=== PATIENT | male | born 1940 | race Caucasian/White ===

== ENCOUNTER 2024-10-05 10:10 | Inpatient (IN) ==
--- NOTE | 2024-10-03 13:33 | Anesthesiology Consultation ---
Date of Service October 03, 2024 Assessment & Plan (1) Encounter for pre-operative examination: - Infectious disease screening: Per assessment on 09/29/24- No known recent infectious disease contacts or current infectious disease symptoms. - Eliquis/Clopidogrel instructions per surgeon/prescriber - Cardiology note (09/23/24): "patient recently seen by Jayda Arellano with no concerns. Patient states today he has no change in symptoms. Able to complete 4 METS with no chest pain or SOB. Low cardiac risk for TCAR.." Chart Review Chart Review: Acceptable Risk for Surgery and Patient NOT seen in Pre Admission Testing History Surgery Operation Date: 10/05/24 11:50 Proposed Procedures p Right Transcarotid Artery Revascularization - Yonas Klein MD Height/Weight Height: 6 ft Weight: 75.296 kg Allergies Allergy/AdvReac Type Severity Reaction Status Date / Time bee venom protein (honey bee) Allergy Severe Anaphylaxis Verified 09/29/24 08:33 Penicillins Allergy Unknown as a Verified 09/29/24 08:33 child>unsure rx Medications Home Medications Medication Instructions Recorded Confirmed Last Taken amlodipine 10 mg tablet 10 mg PO QAM 09/29/24 09/29/24 Unknown apixaban 5 mg tablet 5 mg PO BID 09/29/24 09/29/24 Unknown aspirin 81 mg tablet,delayed 81 mg PO DAILY 09/29/24 09/29/24 Unknown release cholecalciferol (vitamin D3) 10 10 mcg PO QAM 09/29/24 09/29/24 Unknown mcg (400 unit) tablet (Vitamin D3) clopidogrel 75 mg tablet 75 mg PO QAM 09/29/24 09/29/24 Unknown cyanocobalamin (vitamin B-12) 1,000 mcg PO QAM 09/29/24 09/29/24 Unknown 1,000 mcg tablet ezetimibe 10 mg tablet (Zetia) 10 mg PO HS 09/29/24 09/29/24 Unknown Past Medical History Medical History Arthritis Atrial fibrillation Taking Eliquis Follows with [place] cardiology Carotid stenosis Hyperlipidemia Hypertension Past Family History Family History Other No family history of adverse response to anesthesia Past Surgical History Surgical History H/O bilateral cataract extraction H/O shoulder surgery (1999) Left TSA History of cardioversion "Attempt" (2014) History of colonoscopy History of tooth extraction Social History Smoking Status: Former smoker Do You Dip or Chew Tobacco: No Smoking End Date: 04/2024 Hx Alcohol Use: Yes Alcohol type: beer alcohol intake frequency: a few times a week Alcohol Intake Frequency Comment: 6 beers weekly substance use type: does not use Testing Laboratory Results 09/01/24 WBC 6.6 H/H 14.2/42.6 PLATELETS 232 SODIUM 142 POTASSIUM 4.2 CHLORIDE 106 CO2 26 BUN 23 CREATININE 1.2 GLUCOSE 92 HGBA1C 5.9% Electrocardiogram Date: 05/06/24 A. fib at 85bpm. Chest X-Ray Date: 05/06/24 FINDINGS: Heart size and pulmonary vasculature are normal. No effusion, consolidation, or pneumothorax. IMPRESSION: No acute findings. Echocardiogram Date: 12/10/21 EF 60-65%. RV systolic function is at low end of normal. Mild LAD. Moderate TINO. Mild MR. Mild AI. Moderate TR. Stress Test Date: 03/06/22 No reversible myocardial perfusion defects. 63%. Other Testing Neck CTA Date: 04/13/24 Severe VIDAL origin stenosis and focal mild stenosis just distal to the origin. Moderate stenosis at the origin of and just distal to the origin of the LICA. Complete or near-complete occlusion at the origin of the right external carotid artery, but immediately patent just after this focal stenosis at the origin. mild stenosis in b/l common carotid arteries.
--- NOTE | 2024-10-05 08:25 | History & Physical Report ---
Date of Service October 05, 2024 History of Present Illness Primary Care Provider: [facility] Name: ISMAEL PYLE Patient Number: [id number] : 1940 Date of Service: 09/22/2024 Chief Complaint: _New patient consultation for carotid stenosis HPI: _Mr. Pyle is an elderly male who presents to Dr. Klein's vascular surgery clinic today as a new patient in consultation for bilateral carotid stenosis. Patient states that they have been watching his carotid arteries for quite some time, ever since hearing a noise when listening to his neck a few years ago. Patient denies any symptoms of cerebrovascular insufficiency including amaurosis, unilateral extremity weakness numbness tingling, difficulty speaking or swallowing, facial droop, sudden onset confusion. No history of CVA in the past. Patient denies headache, fever, chest pain, shortness of breath, abdominal pain, nausea, vomiting, rest pain, claudication, nonhealing wounds or ulcers, other complaints. Review of systems: A total of 14 systems were reviewed and are negative aside from what is related in his HPI Imaging: Patient had a CTA neck performed at the [facility] which demonstrates severe bilateral carotid stenosis, worse on the right than the left. The right ICA 90% stenosis, the left has 80 to 90% stenosis. Current Home Meds: (Last Updated 09/22 10:35) DULoxetine (DULoxetine 20 mg oral delayed release capsule) 20 mg PO Daily EPINEPHrine (EpiPen 2-Benedict 0.3 mg injectable kit) 0.3 mg IM ONCE PRN: as needed for anaphylaxis amLODIPine (amLODIPine 10 mg oral tablet) 10 mg PO Daily apixaban (apixaban 5 mg oral tablet) 5 mg PO bid aspirin (aspirin 81 mg oral delayed release tablet) 81 mg PO Daily cholecalciferol PO Daily clopidogrel (Plavix 75 mg oral tablet) 75 mg PO Daily cyanocobalamin (cyanocobalamin 1000 mcg oral tablet) 1,000 mcg PO Daily ezetimibe (ezetimibe 10 mg oral tablet) 10 mg PO Daily lisinopril 20 mg PO Daily metoprolol (metoprolol tartrate 50 mg oral tablet) 50 mg PO qhs rosuvastatin (rosuvastatin 40 mg oral tablet) 40 mg PO Daily Allergies and Sensitivities: penicillin(unknown) Bee stings(unknown) Past Medical History: Problems: Tobacco user Carotid artery disease HTN (hypertension) Atrial fibrillation Hypercholesterolemia Surgical history: Positive for tonsillectomy Family history: Positive for hypertension, coronary disease, carotid disease Social history: Patient was smoking about 3 packs of cigarettes a week and quit about 4 months ago after having smoked for about 40 years. He has a beer 2-3 times per week. He denies any illicit drug use. OBJECTIVE Vitals: Last Updated 09/22/24 09:57 Date Temp BP Location Pulse RR SpO2 Pain 09/22/24 130/80 Left Arm 71 98 09/22/24 150/86 Right Arm 0 Vital Signs are the last 3 documented. No Orthostatic Data Available Height and Weight: Last Updated 09/22/24 09:57 Date BMI Wt(kg) Wt(lb) Method Ht(cm) (ft-in) Method 09/22/24 75.2 165 Scale Heights and Weights are the last 3 documented. Physical Exam Constitutional: In general patient is a healthy-appearing well-nourished well- developed elderly male in no distress. He is alert and oriented without any focal deficits. Trachea is midline. Right carotid does demonstrate a high- pitched bruit. Heart has an irregular rhythm, lungs are decreased but clear. Abdomen is soft nontender with erected bowel sounds in all 4 quadrants. Radial brachial femoral pulses are +3. Lower extremities the pulses are +2. Has brisk capillary fill and no sign of distal ischemia ASSESSMENT: _ PLAN: _ 1 ) _bilateral carotid stenosis Patient does have severe bilateral ICA stenosis, worse in the right than the left. He is currently asymptomatic from this. Due to the degree of stenosis and his increased risk of CVA, we recommend that he undergo surgical intervention. The options of carotid endarterectomy versus TCAR were presented to the patient, he elects to proceed with TCAR. We would have him undergo his right side first and then perform his left side at a later date. The procedure benefits and alternatives were discussed with the patient. The risks of the procedure including but not limited to bleeding, infection, blood clots, heart attack, nerve damage, stroke, , were discussed at length with patient by myself at Dr. Klein's request. Patient expressed understanding and agreement to proceed. This will occur in the next few weeks at the patient's convenience. He was started on Plavix and aspirin today, and is aware that he will require these medications for at least 1 year postoperatively. Due to his cardiac history, we will request clearance [facility] anesthesiologist prior to this procedure. Thank you for letting us participate in the care of this patient. I have personally spent_53__ minutes performing [id number] and [id number] activities on this date of service.Time does not include separately reported services. Activities Include: x__ review of the medical record _x_ obtaining a history _x_ physical exam/evaluation __ review labs _x_ review radiology reports _x_ counseling/educating patient/family/caregiver __ discussion/referral to other healthcare professional _x_ documenting care in the medical record __ independent interpretation of results _x_ communication of results to patient/family/caregiver _x_ coordination of care Signature Line Electronic Signature on File Electronically Reviewed/Signed by: Amparo Tejada PA-C Author Signature Dt/Tm:09/22/2024 02:36 PM [facility] [place], [address] [place] [id number] Result Type: HVI Outpt Note Date of Service: September 22, 2024 14:24 EDT Authorization Status: Final Author or Import Date: MONIKA Tejada Lynn on September 22, 2024 14:36 EDT Verified By: MONIKA Tejada Lynn on September 22, 2024 14:36 EDT Encounter info: [id number], [facility] [place] [facility], Clinic, 09/22/2024 - 09/22/2024 Allergies Allergy/AdvReac Type Severity Reaction Status Date / Time bee venom protein (honey bee) Allergy Severe Anaphylaxis Verified 09/29/24 08:33 Penicillins Allergy Unknown as a Verified 09/29/24 08:33 child>unsure rx Home Medications Medication Instructions Recorded Confirmed Type amlodipine 10 mg tablet 10 mg PO QAM 09/29/24 09/29/24 History apixaban 5 mg tablet 5 mg PO BID 09/29/24 09/29/24 History aspirin 81 mg tablet,delayed 81 mg PO DAILY 09/29/24 09/29/24 History release cholecalciferol (vitamin D3) 10 10 mcg PO QAM 09/29/24 09/29/24 History mcg (400 unit) tablet (Vitamin D3) clopidogrel 75 mg tablet 75 mg PO QAM 09/29/24 09/29/24 History cyanocobalamin (vitamin B-12) 1,000 mcg PO QAM 09/29/24 09/29/24 History 1,000 mcg tablet ezetimibe 10 mg tablet (Zetia) 10 mg PO HS 09/29/24 09/29/24 History Past Med/Surg History Problem List Encounter for pre-operative examination Medical History Arthritis Atrial fibrillation Taking Eliquis Follows with [place] cardiology Carotid stenosis Hyperlipidemia Hypertension Surgical History H/O bilateral cataract extraction H/O shoulder surgery (1999) Left TSA History of cardioversion "Attempt" (2014) History of colonoscopy History of tooth extraction Family History Other No family history of adverse response to anesthesia Social History Smoking Status: Former smoker Tobacco Type: Cigarettes Smoking End Date: 04/2024; Second Hand Exposure: Yes ( smokes); Do You Dip or Chew Tobacco: No; Hx Alcohol Use: Yes Alcohol type: beer Preferred Language: [place] [address] Justice Required: No Beliefs That Will Affect Care: None Current Living Situation: Family Current Living Situation Comment: and step daughter Feels Safe at Home: Yes Safety Concerns: Feels Safe At This Time Assistive Devices: Denture - Upper, Glasses and Hearing Aid - Bilateral
[~2024-10-05 10:10] MED LIST: DEXAMETHASONE SOD INJ 4 MG/ML VIAL ONE; GLYCOPYRROLATE 0.2 MG/ML VIAL ONE; HEPARIN SOD (PORCINE) 1000 UNIT/ML ONE; LIDOCAINE 2% 2 ML VIAL/AMP(20MG/ML) INFIL ONE; MIDAZOLAM HCL 1 MG/ML 2ML VIAL ONE; ONDANSETRON INJ 2 MG/ML 2 ML VIAL ONE; PHENYLEPHRINE HCL 25 MG/250 ML NSS IV ONE; PROPOFOL IV EMULSION 10 MG/ML 20 ML VIAL IV ONE; PROTAMINE SULFATE 10 MG/ML 5 ML VIAL IV ONE; ROCURONIUM BROMIDE 10 MG/ML 5 ML VIAL IV ONE; SUGAMMADEX SODIUM 200 MG/2 ML VIAL IV ONE
[2024-10-05 10:44] LABS: Anion Gap 5.0 (3-11); Blood Urea Nitrogen 27.0 mg/dl (6-23); Calcium 10.0 mg/dl (8.6-10.3); Carbon Dioxide 29.0 mmol/L (21-32); Chloride 104.0 mmol/L (98-107); Creatinine Clr Calc Pharmacy 42.2 ml/min; Glucose 94.0 mg/dl (70-99(Fasting)); Potassium 4.8 mmol/L (3.5-5.1); Sodium 138.0 mmol/L (136-145)
[2024-10-05] MEDS: SODIUM CHLORIDE 0.9% 1,000 ML IV SCH ×2 (10:50→17:17)
[2024-10-05 10:55] LABS: INR 1.1 (0.9-1.1); Partial Thromboplastin Time 31 Seconds (21-31); Prothrombin Time 11.4 Seconds (9.0-12.0)
[2024-10-05] MEDS ORDERED: ONDANSETRON INJ 2 MG/ML 2 ML VIAL IV PRN (11:36)
[2024-10-05] MEDS ORDERED: ATROPINE SULFATE 0.1 MG/ML 10ML SYR IV PRN (11:36)
--- NOTE | 2024-10-05 12:09 | History & Physical Bridge Note ---
Date of Service October 05, 2024 History & Physical Bridge Note I have examined the patient, reviewed the History & Physical and in the interval since the performance of the History & Physical I have noted the following changes of clinical significance: no changes noted
[2024-10-05] MEDS: CLINDAMYCIN/D5W 900 MG/50 ML BAG IV SCH (13:09)
[2024-10-05] MEDS: ceFAZolin 330 MG/ML 1 GM VIAL ONE (13:52)
[2024-10-05] MEDS: VISIPAQUE IV ONE (14:11)
[2024-10-05] MEDS: SURGICEL ABSORB HEMOSTAT 2IN X 14IN TOP ONE (14:12)
[2024-10-05] MEDS: GELATIN SPONGE SZ 100 ONE (14:16)
[2024-10-05] MEDS: BUPIVACAINE/EPINEPHRINE 0.5% MPF 1:200,000 30 ML VIAL ONE (14:16)
[2024-10-05] MEDS: THROMBIN FOR SOLN 20000 UNIT KIT ONE (14:16)
--- NOTE | 2024-10-05 14:19 | Procedure Note ---
Angiogram Post Procedure Fluoroscopy Time (minutes): 4 Radiation (mGy): 31 Contrast: 15 Post Operative Report Pre & Post Diagnosis Operation Date: 10/05/24 11:50 Pre-Op Diagnosis: Right Internal Carotid Artery Stenosis Post-Op Diagnosis: Right Internal Carotid Artery Stenosis I identified the patient and participated in the time-out.: Yes Procedure Operation Date: 10/05/24 11:50 Actual Procedures p Right Transcarotid Artery Revascularization, Ultrasound Left Commom Femoral Vein(Right) - Yonas Klein MD Surgeon Yonas Klein MD Multiple Punch Press Operator Priscilla,PAC Estimated Blood Loss 10 Findings Consistent with Post-Op Diagnosis Specimens none Anesthesia Type General Complications none Disposition Accompanied Patient To Recovery: No Disposition: Recovery Room Indications This is an 84-year-old gentleman who has bilateral severe carotid disease worse on the right than the left. Recommend intervention. He elected to go ahead with a TCAR of the right carotid. I have discussed the risks options and benefits of the procedure with the patient. The patient understands the risks options and benefits and agrees to the procedure. Description of Procedure The patient was taken to the operating room and placed in supine position. After general anesthesia was accomplished the groins and right side of the neck and chest were prepped and draped in a sterile manner. Timeout was performed and the patient was identified. A transverse incision was made just above the clavicle between the heads of the sternocleidomastoid. This is carried down to where the common carotid artery was identified. It was isolated. It was slung with umbilical tape. Next the U stitch was placed in the common carotid artery with a 5-0 Prolene suture. Patient was given 8000 heparin at that time. Ultrasound was then used to localize the left common femoral vein. The vein was patent and compressed easily. Under ultrasound guidance the left common femoral vein was punctured and the venous sheath was inserted. This was aspirated and flushed with heparinized saline. ACT at that time was 325. Using micropuncture technique the common carotid artery was punctured. The micro sheath was inserted to 3 cm. Injection was then done showing the bifurcation. There was a significant lesion seen at the origin of the internal carotid artery on the left side. We then inserted the J-wire left and short of the lesion. The micro sheath was removed and the TCAR sheath was inserted. Once it was in place and held against the artery it was sutured to the chest wall and the incision edge. We then flushed the tubing appropriately. The venous return to was clamped onto the TCAR sheath. It was flushed through and then attached to the venous inflow sheath in the left groin. Sheath was checked for flow. The saline cleared nicely. The common carotid artery was then clamped. Flow reversal was instituted.The flow reversal was again checked for flow and found to have good flow after clamping. We inserted a 5 x 35 balloon backloaded on the wire. The wire was passed through the lesion into the petrous portion of the internal carotid. The 5 balloon was then advanced to the lesion. Lesion was then predilated with a 5 mm balloon. Balloon was removed. We then inserted the 9/7 x 40 stent. This was deployed across the lesion without difficulty. The catheter was removed. We allowed 2 minutes to pass with flow reversal and then did an arteriogram. There appeared to be still a slight amount of narrowing at the midportion of the stent. The stent proximally just barely cover the proximal end of the plaque. We then inserted a 9 x 30 stent to cover the proximal lesion. We then inserted a 5.5 x 25 balloon and redilated this area. Widely patent stent was then noted on fluoroscopy. The carotid was allowed to go 2 minutes with flow reversal. Completion angiogram was done in two views at that time which showed a widely patent carotid stent. At that point the common carotid artery was unclamped. The venous return tubing was clamped and removed from the TCAR sheath. The blood was allowed to flow back into the venous system. The TCAR sheath was then removed and the 5-0 Prolene suture securely tied. The patient was given 25 mg of protamine. Hemostasis was noted of the puncture site. An ACT was then drawn. The ACT was 141. The sheath was pulled from the groin and pressure was applied. Wound was irrigated with saline solution. Adequate hemostasis was obtained of the wound. Once this was noted the wound was closed in usual fashion using a 3-0 Vicryl suture for the subcutaneous layer and a 4-0 subcuticular Vicryl suture for the skin edges. Dermabond was used for dressing. The patient left the operation room in satisfactory condition and tolerated the procedure well. All needle and sponge counts were correct at the end of the procedure. Amparo Tejada Pac assisted due to lack of resident availability and was necessary for positioning, draping, retraction, wound closure deep layers, subcutaneous tissue, and skin closure and was necessary for assisting with the case. I attest to the content of the Intraoperative Record and any orders documented therein. Any exceptions are noted below.
--- NOTE | 2024-10-05 15:20 | Anesthesiology Progress Note ---
Date of Service October 05, 2024 Anesthesia Post Procedure Vital Signs Vital Signs: Temp Pulse Pulse Resp BP BP BP 10/05/24 15:10 36.4 C L 90 18 132/64 137/80 10/05/24 15:00 100 H 20 119/62 123/75 10/05/24 14:50 99 H 18 135/65 130/65 10/05/24 14:40 36.0 C L 97 H 12 164/65 H 10/05/24 10:35 36.5 C 66 20 167/94 H 176/88 H Pulse Ox O2 Del Method O2 Flow Rate 10/05/24 15:10 98 Room Air 10/05/24 15:00 97 Oxymask 4 10/05/24 14:50 99 Oxymask 6 10/05/24 14:40 100 Oxymask 6 10/05/24 10:35 97 Room Air Transfer of Care Handoff Completed per policy Notes Mental Status: alert / awake / arousable and participated in evaluation Patient Amnestic to Procedure: Yes Nausea / Vomiting: adequately controlled Pain: adequately controlled Airway Patency, RR, SpO2: stable & adequate BP & HR: stable & adequate Hydration State: stable & adequate Anesthetic Complications: no major complications apparent
[2024-10-05] MEDS ORDERED: STAT IV Infusion **Titration per Protocol STA (16:34)
[2024-10-05] MEDS ORDERED: PHENYLEPHRINE/NSS 25 MG/250 ML BAG IV PRN (16:34)
[2024-10-05] MEDS: CLINDAMYCIN/D5W 600 MG/50 ML BAG IV SCH (17:17)
[2024-10-05 18:28] VITALS: TEMP 97.7
[2024-10-05] MEDS ORDERED: MoRPHine SULFATE 2 MG/ML CARP IV PRN (19:09)
[2024-10-05] MEDS ORDERED: ACETAMINOPHEN 325 MG TAB PO PRN (19:09)
--- NOTE | 2024-10-05 19:26 | Critical Care Consultation ---
Date of Consultation October 05, 2024 Assessment & Plan (1) History of transcarotid artery revascularization (TCAR): (2) Carotid stenosis: (3) Atrial fibrillation: Plan Reason Critically Ill: 84 YOM presents for RIGHT TCAR for VIDAL stenosis, to the ICU for routine postoperative hemodynamics monitoring as well as frequent NV/CV exams. Neuro - S/P RT TCAR, HX TIA CAM ICU: NEGATIVE - Pain control- Tylenol, Percocet 5/325, Morphine 2mg - No neurological deficits noted - Follow overnight Cardiac - As above, - HX: Afib, HTN - Antiplateltet and antixa medications per surgery team- initiate once hemostasis is ensured - Afib for past 5 years- as above for his Apixaban - Vasoactive medications per vascular surger - Follow groin incision site Respiratory - No acute needs GI - No acute needs - Tolerating diet RENAL/LYTES - No acute needs - [id number] electrolytes- ICU electrolyte protocol - No acute needs ENDO - No acute needs - ICU hyperglycemia protocol HEME - No acute needs - blood transfusions per surgery discression ID - NO concern for infective cause at this time LINES/IV ACCESS - Ester HINES Continue use of these lines DVT PROPHYLAXIS - SCDS DISPO: ICU until hemodyanmics are proven stable and no evidence of bleeding. I have personally spent 35 minutes of time in the direct management of this patient. This is a life/limb threatening event. This includes time spent evaluating patient, direct bedside care, chart review, placing orders, inter pretation of diagnostic studies, discussion with consultants, patient, and family members, as well as other required patient management activities. This time is exclusive of all separately billable procedures, and teaching time and separate from and in addition to any other critical care service time. Thank you for allowing us to participate in the care of this patient. Please refer to my attending physician's documentation for any further recommendations. Supervising Physician Co-Signing Physician Notes Critical care will sign off History of Present Illness Reason for Consultation: Postoperative monitoring s/p TCAR Requesting Physician: Yonas Klein MD Attending Physician: Yonas Klein MD History of Present Illness 84 YOM with history of: TIA, HTN, DMII, Afib on Apixaban. Patient presents today for RIGHT TCAR for HENRY stenosis in light of TIA. Patient is POD #0. Seen on evening rounds, patient is extubated and on room air. Pain is currently controlled and he has tolerated liquids and diet. Reviewed with bedside nurse, concern for small area of bleeding noted through LEFT groin access site- surgeon just updated. No hematoma noted. Patient is not on any vasoactive medications at this time. CODE: FULL Allergies Allergy/AdvReac Type Severity Reaction Status Date / Time bee venom protein (honey bee) Allergy Severe Anaphylaxis Verified 10/05/24 10:33 Penicillins Allergy Unknown as a Verified 10/05/24 10:33 child>unsure rx Home Medications Medication Instructions Recorded Confirmed Type amlodipine 10 mg tablet 10 mg PO QAM 09/29/24 10/05/24 History apixaban 5 mg tablet 5 mg PO BID 09/29/24 10/05/24 History aspirin 81 mg tablet,delayed 81 mg PO DAILY 09/29/24 10/05/24 History release cholecalciferol (vitamin D3) 10 10 mcg PO QAM 09/29/24 10/05/24 History mcg (400 unit) tablet (Vitamin D3) clopidogrel 75 mg tablet 75 mg PO QAM 09/29/24 10/05/24 History cyanocobalamin (vitamin B-12) 1,000 mcg PO QAM 09/29/24 10/05/24 History 1,000 mcg tablet ezetimibe 10 mg tablet (Zetia) 10 mg PO HS 09/29/24 10/05/24 History Patient History Medical History Arthritis Atrial fibrillation Taking Eliquis [facility] Carotid stenosis Hyperlipidemia Hypertension Surgical History H/O bilateral cataract extraction H/O shoulder surgery (1999) Left TSA History of cardioversion "Attempt" (2014) History of colonoscopy History of tooth extraction Family History Other No family history of adverse response to anesthesia Social History Smoking Status: Former smoker Tobacco Type: Cigarettes Smoking End Date: 04/2024; Second Hand Exposure: No; Do You Dip or Chew Tobacco: No; Tobacco Cessation Education Requested by Patient: No Hx Alcohol Use: Yes Alcohol type: beer Hx Substance Use: No Preferred Language: Croatian Communication Ability: Effective Greens Picker Required: No Beliefs That Will Affect Care: None Current Living Situation: Spouse Current Living Situation Comment: and step daughter Other Information That Helps Us Care for You: No Feels Safe at Home: Yes Safety Concerns: Feels Safe At This Time Assistive Devices: Walker Review of Systems Review of Systems: REVIEW OF SYSTEMS: Constitutional: No fever, sweats or chills Eyes: No diplopia, no worsening or blurred vision ENT: normal hearing, no trouble swallowing Respiratory: No cough, sputum, dyspnea at rest or on exertion Cardiovascular: (+) afib, No chest pain, tightness or palpitations Abdomen: No pain, nausea, vomiting, diarrhea or constipation Musculoskeletal: (+) chronic joint pain Neurologic: (+) TIA hx no residual and no new weakness, numbness/tingling, or balance problems Psychiatric: No anxiety or depression Skin: No rash or itch Physical Exam Physical Exam: PHYSICAL EXAM: General: awake, alert, no apparent distress Head: Normocephalic, atraumatic ENT: PERRL, EOMI, no pharyngeal exudate, mucous membranes moist Neuro: AAO x 3, speech clear and appropriate, strength intact bilaterally 5/5, sensation intact and equal all extremities no pronator drift Chest: equal rise and fall of the chest, no accessory muscle use, no heaves or thrills, Clear to auscultation, on room air, Cardiac: irregular rate and rhythm, telemetry reviewed- afib, skin warm dry, cap refill <3 seconds, peripheral pulses +2 no JVD, no murmur, incision in neck is with dermabond and is intact without hematoma, left groin with small strikethrough on gauze dressing, no hematoma or pulsatile mass noted. peripheral pulses 2+ GI: NABS x 4 quadrants, soft, nontender to palpation, no rebound, guarding or tenderness : Spontaneously voiding, no pain, no CVA tenderness, Extremities: Normal inspection, no peripheral edema or erythema, calfs nontender to palpation Psych: Normal mood and affect Skin: no rash or erythema Results & Data Results & Data Vital Signs (Past 12 Hours) Vital Signs Temp Pulse Pulse Pulse Resp BP BP 10/05/24 18:00 125/75 10/05/24 18:00 125/75 10/05/24 18:00 77 78 H 10/05/24 17:36 82 21 10/05/24 17:30 108/63 10/05/24 17:18 76 22 10/05/24 17:00 120/72 10/05/24 17:00 120/72 10/05/24 16:57 85 12 10/05/24 16:54 85 19 10/05/24 16:00 10/05/24 16:00 36.5 C 74 16 109/71 10/05/24 16:00 73 10/05/24 15:30 97 H 12 130/71 10/05/24 15:20 97 H 14 132/67 10/05/24 15:10 36.4 C L 90 18 132/64 10/05/24 15:00 100 H 20 119/62 10/05/24 14:50 99 H 18 135/65 10/05/24 14:40 36.0 C L 97 H 12 164/65 H 10/05/24 10:35 36.5 C 66 20 167/94 H BP BP Pulse Ox O2 Del Method O2 Flow Rate 10/05/24 18:00 10/05/24 18:00 10/05/24 18:00 95 10/05/24 17:36 96 10/05/24 17:30 10/05/24 17:18 96 10/05/24 17:00 10/05/24 17:00 10/05/24 16:57 91 10/05/24 16:54 98 10/05/24 16:00 Room Air 10/05/24 16:00 105/68 95 Room Air 10/05/24 16:00 10/05/24 15:30 116/83 96 Room Air 10/05/24 15:20 135/79 96 Room Air 10/05/24 15:10 137/80 98 Room Air 10/05/24 15:00 123/75 97 Oxymask 4 10/05/24 14:50 130/65 99 Oxymask 6 10/05/24 14:40 100 Oxymask 6 10/05/24 10:35 176/88 H 97 Room Air Laboratory Results Abnormal lab results 10/05/24 10/05/24 10/05/24 Range/Units 10:15 13:49 14:18 Activ Coag Time Kaolin 325 H 141 H (94-140) SECONDS BUN 27 H (6-23) mg/dl Coding Level of Care Code 62773 IN/OBS CONSULT LVL 2,35M Diagnoses History of transcarotid artery revascularization (TCAR) Z98.62 Carotid stenosis I65.29 Atrial fibrillation I48.91
[2024-10-05] MEDS: EZETIMIBE 10 MG TAB PO SCH (20:58)
[2024-10-06] MEDS: CLOPIDOGREL BISULFATE 75 MG TAB PO SCH (08:34)
[2024-10-06] MEDS: CYANOCOBALAMIN (B-12) 500 MCG TABLET PO SCH (08:34)
[2024-10-06] MEDS: ASPIRIN 81 MG ECTAB PO SCH (08:34)
[2024-10-06] MEDS: CHOLECALCIFEROL 10 MCG (400 UNITS) TAB PO SCH (08:34)
[2024-10-06 08:38] VITALS: RESP 16
--- NOTE | 2024-10-06 12:38 | Surgery Progress Note ---
Date of Service October 06, 2024 Assessment & Plan (1) Carotid stenosis: Plan: Patient post op day 1 from a right tcar. Doing well will d\c today Admission and Anticipated Discharge Date Admission Date: October 05, 2024 Subjective Patient with no complaints. Denies any focal deficits Physical Exam Physical Exam: Constitutional: WD/WN, vitals as a navin Respiratory: normal respiratory effort; no respir atory distress Cardiovascular: Rate/Rhythm: regul ar rate and regula r rhythm Skin: + incision (dry a nd clean) Neurologic: CN's II-XI intact bilaterally and mo ves all extremitie s Psychiatric: A+Ox3, euthymic af fect Results & Data Vital Signs (Past 12 Hours) Vital Signs Pulse Resp BP Pulse Ox 10/06/24 08:06 53 L 16 10/06/24 08:00 98/53 L 10/06/24 07:57 56 L 20 10/06/24 07:30 108/76 10/06/24 07:24 64 17 88 L 10/06/24 07:15 48 L 15 97 10/06/24 07:00 108/64 10/06/24 06:48 48 L 16 98 10/06/24 06:30 108/73 10/06/24 06:27 52 L 5 L 97 10/06/24 05:33 68 22 96 10/06/24 05:30 120/70 10/06/24 05:30 120/70 10/06/24 05:00 100/57 L 10/06/24 04:42 48 L 24 96 10/06/24 04:03 58 L 19 96 10/06/24 04:00 117/62 10/06/24 04:00 117/62 10/06/24 04:00 117/62 10/06/24 03:30 91/59 L 10/06/24 03:30 91/59 L 10/06/24 03:15 54 L 12 96 10/06/24 03:00 52 L 13 95 10/06/24 03:00 91/55 L 10/06/24 03:00 91/55 L 10/06/24 02:30 54 L 20 95 10/06/24 02:30 92/55 L 10/06/24 02:18 63 18 95 10/06/24 01:30 133/91 10/06/24 01:30 133/91 10/06/24 01:30 68 14 10/06/24 01:03 62 20 97 10/06/24 01:00 10/06/24 01:00 10/06/24 01:00 10/06/24 01:00 10/06/24 01:00 10/06/24 00:42 52 L 20 97
--- NOTE | 2024-10-06 12:50 | Discharge Summary ---
Date of Service October 06, 2024 Admission HPI Per Admitting Provider Name: ISMAEL PYLE Patient Number: [id number] : 1940 Date of Service: 09/22/2024 Chief Complaint: _New patient consultation for carotid stenosis HPI: _Mr. Pyle is an elderly male who presents to Dr. Klein's vascular surgery clinic today as a new patient in consultation for bilateral carotid stenosis. Patient states that they have been watching his carotid arteries for quite some time, ever since hearing a noise when listening to his neck a few years ago. Patient denies any symptoms of cerebrovascular insufficiency including amaurosis, unilateral extremity weakness numbness tingling, difficulty speaking or swallowing, facial droop, sudden onset confusion. No history of CVA in the past. Patient denies headache, fever, chest pain, shortness of breath, abdominal pain, nausea, vomiting, rest pain, claudication, nonhealing wounds or ulcers, other complaints. Review of systems: A total of 14 systems were reviewed and are negative aside from what is related in his HPI Imaging: Patient had a CTA neck performed at the [facility] which demonstrates severe bilateral carotid stenosis, worse on the right than the left. The right ICA 90% stenosis, the left has 80 to 90% stenosis. Current Home Meds: (Last Updated 09/22 10:35) DULoxetine (DULoxetine 20 mg oral delayed release capsule) 20 mg PO Daily EPINEPHrine (EpiPen 2-Benedict 0.3 mg injectable kit) 0.3 mg IM ONCE PRN: as needed for anaphylaxis amLODIPine (amLODIPine 10 mg oral tablet) 10 mg PO Daily apixaban (apixaban 5 mg oral tablet) 5 mg PO bid aspirin (aspirin 81 mg oral delayed release tablet) 81 mg PO Daily cholecalciferol PO Daily clopidogrel (Plavix 75 mg oral tablet) 75 mg PO Daily cyanocobalamin (cyanocobalamin 1000 mcg oral tablet) 1,000 mcg PO Daily ezetimibe (ezetimibe 10 mg oral tablet) 10 mg PO Daily lisinopril 20 mg PO Daily metoprolol (metoprolol tartrate 50 mg oral tablet) 50 mg PO qhs rosuvastatin (rosuvastatin 40 mg oral tablet) 40 mg PO Daily Allergies and Sensitivities: penicillin(unknown) Bee stings(unknown) Past Medical History: Problems: Tobacco user Carotid artery disease HTN (hypertension) Atrial fibrillation Hypercholesterolemia Surgical history: Positive for tonsillectomy Family history: Positive for hypertension, coronary disease, carotid disease Social history: Patient was smoking about 3 packs of cigarettes a week and quit about 4 months ago after having smoked for about 40 years. He has a beer 2-3 times per week. He denies any illicit drug use. OBJECTIVE Vitals: Last Updated 09/22/24 09:57 Date Temp BP Location Pulse RR SpO2 Pain 09/22/24 130/80 Left Arm 71 98 09/22/24 150/86 Right Arm 0 Vital Signs are the last 3 documented. No Orthostatic Data Available Height and Weight: Last Updated 09/22/24 09:57 Date BMI Wt(kg) Wt(lb) Method Ht(cm) (ft-in) Method 09/22/24 75.2 165 Scale Heights and Weights are the last 3 documented. Physical Exam Constitutional: In general patient is a healthy-appearing well-nourished well- developed elderly male in no distress. He is alert and oriented without any focal deficits. Trachea is midline. Right carotid does demonstrate a high- pitched bruit. Heart has an irregular rhythm, lungs are decreased but clear. Abdomen is soft nontender with erected bowel sounds in all 4 quadrants. Radial brachial femoral pulses are +3. Lower extremities the pulses are +2. Has brisk capillary fill and no sign of distal ischemia ASSESSMENT: _ PLAN: _ 1 ) _bilateral carotid stenosis Patient does have severe bilateral ICA stenosis, worse in the right than the left. He is currently asymptomatic from this. Due to the degree of stenosis and his increased risk of CVA, we recommend that he undergo surgical intervention. The options of carotid endarterectomy versus TCAR were presented to the patient, he elects to proceed with TCAR. We would have him undergo his right side first and then perform his left side at a later date. The procedure benefits and alternatives were discussed with the patient. The risks of the procedure including but not limited to bleeding, infection, blood clots, heart attack, nerve damage, stroke, , were discussed at length with patient by myself at Dr. Klein's request. Patient expressed understanding and agreement to proceed. This will occur in the next few weeks at the patient's convenience. He was started on Plavix and aspirin today, and is aware that he will require these medications for at least 1 year postoperatively. Due to his cardiac history, we will request clearance [facility] prior to this procedure. Thank you for letting us participate in the care of this patient. I have personally spent_53__ minutes performing [id number] and [id number] activities on this date of service.Time does not include separately reported services. Activities Include: x__ review of the medical record _x_ obtaining a history _x_ physical exam/evaluation __ review labs _x_ review radiology reports _x_ counseling/educating patient/family/caregiver __ discussion/referral to other healthcare professional _x_ documenting care in the medical record __ independent interpretation of results _x_ communication of results to patient/family/caregiver _x_ coordination of care Signature Line Electronic Signature on File Electronically Reviewed/Signed by: Amparo Tejada PA-C Author Signature Dt/Tm:09/22/2024 02:36 PM [facility] [place], [address] [place] [address] Result Type: HVI Outpt Note Date of Service: September 22, 2024 14:24 EDT Authorization Status: Final Author or Import Date: MONIKA Tejada Lynn on September 22, 2024 14:36 EDT Verified By: MONIKA Tejada Lynn on September 22, 2024 14:36 EDT Encounter info: [id number], [facility], Clinic, 09/22/2024 - 09/22/2024 Admission Exam Per Admitting Provider Constitutional: In general patient is a healthy-appearing well-nourished well- developed elderly male in no distress. He is alert and oriented without any focal deficits. Trachea is midline. Right carotid does demonstrate a high-pitc hed bruit. Heart has an irregular rhythm, lungs are decreased but clear. Abdomen is soft nontender with erected bowel sounds in all 4 quadrants. Radial brachial femoral pulses are +3. Lower extremities the pulses are +2. Has brisk capillary fill and no sign of distal ischemia Principal Diagnosis Right internal carotid artery stenosis Discharge Exam Constitutional: WD/WN, vitals as above Respiratory: normal respiratory effort; no respiratory distress Cardiovascular: Rate/Rhythm: regular rate and regular rhythm Skin: + incision (dry and clean) Neurologic: CN's II-XI intact bilaterally and moves all extremities Psychiatric: A+Ox3, euthymic affect Discharge Data Allergies Allergy/AdvReac Type Severity Reaction Status Date / Time bee venom protein (honey bee) Allergy Severe Anaphylaxis Verified 10/05/24 10:33 Penicillins Allergy Unknown as a Verified 10/05/24 10:33 child>unsure rx Consultations 10/05/24 16:34 Consult Divider Operator Routine Procedures Performed Operation Date: 10/05/24 11:50 Actual Procedures p Right Transcarotid Artery Revascularization, Ultrasound Left Commom Femoral Vein(Right) - Yonas Klein MD Ordered Studies 10/05/24 07:35 EV angio carotid cerv RT Routine Hospital Course (1) Carotid stenosis: Patient post op day 1 from a right tcar. Doing well will d\c today Total Time Total Time Spent Total Time Spent (In Minutes): x Discharge Plan Discharge Items Patient Disposition: Home - Self-Care Reason For Visit: Right Internal Carotid Artery Stenosis Discharge Diagnosis: Right internal carotid artery stenosis Activity: Per Instructions section Non-emergency contact: Surgeon Call non-emergency contact if: your temperature is above 101.5, your wound has increased redness, your wound has increased drainage and your wound pain has increased Follow-up/Referrals: Shannen Soto M.D. [Primary Care Provider] - Diet: Heart Healthy Add Attending Provider Instructions: SPECIAL CARE INSTRUCTIONS: Diet: * You may return to previous diet. Medications: * Continue to take Aspirin, plavix and statin as directed. Incision Care: * You may shower, but do not rub incision. You may let the warm soapy water run over it. Be sure to dry the incision well after bathing. * Do not shave directly over the incision until it is healed. * DO NOT IMMERSE THE INCISION IN A TUB/POOL/etc. UNTIL HEALED. Restrictions: * Do not drive for at least one week or if you are still taking any narcotic pain medication. * Do not lift anything heavier than a gallon of milk for one week after going home. Possible Complications: * Numbness - It is normal to have some numbness around the incision. Numbness can extend beyond the incision to areas of the neck, ear and face. The numbness is due to bruising of nerves during the surgery and will gradually improve over a period of months. * Hoarseness/Difficulty Speaking and Swallowing - The bruising of nerves in the neck can also cause a hoarse voice, difficulty speaking or swallowing. This may improve over time, HOWEVER, if it continues for more than a few days please contact our office ([phone]). * Excessive Swelling - There will be some swelling immediately after surgery which usually resolves within one week. If you notice that the swelling is getting worse, notify your surgeon ([phone]). * Drainage/Bleeding - If there is any drainage or bleeding, it should be a very small amount (less than a teaspoon per day). If you have excessive bleeding or drainage from the incision, call your surgeon ([phone]) right away. ACTIVATION OF EMERGENCY MEDICAL SYSTEM: Call 911, immediately, if you experience any of the following: Warning Signs and Symptoms of Stroke: * Sudden numbness or weakness of the face, arm or leg, especially on one side of the body * Sudden confusion, trouble speaking or understanding * Sudden trouble seeing in one or both eyes * Sudden trouble walking, dizziness, loss of balance or coordination * Sudden severe headache with no cause Do not delay calling 911 if you experience any warning signs or symptoms of a stroke. Delay in seeking medical attention may affect what treatments can be given to you. Risk Factors for Stroke: You can reduce your chances of stroke by working with your medical provider to adopt a healthy lifestyle. Some specific ways to lower your chance of stroke are: * If you are a smoker, now is the time to stop smoking cigarettes * If you are diabetic, improve the control of your blood sugars * Avoid excessive amounts of alcohol * Control high blood pressure * Lose weight if you are overweight * Be sure to lead an active lifestyle * Eat a healthy diet low in salt, cholesterol and fat You should know about other risk factors for stroke that you are unable to control. These include: * Age 55 years or older * Male gender * Certain racial groups: , or / * Family History of Stroke, Mini stroke or Heart Attack * Sickle Cell Disease You will be receiving a call from the Vascular Surgery Nurse after you are discharged. FOLLOW UP VISIT: It is important for you to keep your follow up appointments with your medical provider. Keep any scheduled doctor appointments. Call [phone] to schedule a follow up appointment if one not already scheduled. Pending Studies at Discharge: No Stand-Alone Forms: My [facility], Smoking Cessation Medications and DC Order Prescriptions: Continued clopidogrel 75 mg Tablet 75 mg PO QAM aspirin [Aspir-81] 81 mg Tablet,Delayed Release (Dr/Ec) 81 mg PO DAILY amlodipine 10 mg Tablet 10 mg PO QAM apixaban 5 mg Tablet 5 mg PO BID cyanocobalamin (vitamin B-12) 1,000 mcg Tablet 1,000 mcg PO QAM cholecalciferol (vitamin D3) [Vitamin D3] 10 mcg (400 unit) Tablet 10 mcg PO QAM ezetimibe [Zetia] 10 mg Tablet 10 mg PO HS Discharge Orders: Discharge Order (Routine); Ordered 10/06/24 Ordered By: Yonas Klein Admission Data Admit Date/Time: 10/05/24 12:09 Attending Provider: Yonas Klein Admit Provider: Yonas Klein Primary Care Provider: Shannen Soto Other Providers: Yobany Lo; Quentin Hodge; Rickey Torres; Ольга Ceja; Deep Muñoz; Lena Awad; Rohan Santoyo
[2024-10-06 13:59] VITALS: BP 109/71; PULSE 74; O2SAT 94
== END 2024-10-06 14:53 | disposition home or self-care (01) | DRG 36 ==
LOC: ASU 10:10 → 1E 12:09
PROC: EV.TCAR (2024-10-05 11:50)